=== PATIENT | female | born 1950 | race Hispanic/Latino ===

== ENCOUNTER 2017-12-27 15:13 | Emergency (ER) | payer BC, MEDICARE ==
[2017-12-27 15:20] VITALS: BMI 24.0
[2017-12-27] MEDS ORDERED: Sodium Chloride 0.9% 500 ML IV STA (15:32)
--- NOTE | 2017-12-27 15:40 | ED PDOC ---
Arrival/HPI - General Chief Complaint: Dizziness/Lightheaded Time Seen by Provider: 12/27/17 15:30 Historian: Patient - History of Present Illness Narrative History of Present Illness (Text): 12/27/17 15:30 pt p/w + sudden onset of dizziness/room spinning; pt states she was laying on a bed while getting a facial; pt states + nausea, no vomiting, ? mild headache, no fever/chills/sweats, no cp/sob/palpitations, no abd pain, no numbness/ tingling, no urinary/bowel changes, no fall/trauma/sick contact, no travel; pt denied any recent illness/URI symptoms pt denied vision changes, no neck pain, no hearing changes, no facial changes, and pt's daughter did not notice any speech changes pt arrived to the Emergency department for further eval pt's without other complaints PCP: Sammie Past medical history: NONE, ? HTN pt is right hand dominate Time/Duration: Prior to Arrival Symptom Onset: Sudden Symptom Course: Unchanged Severity Level: Severe Activities at Onset: Other (laying down while getting a facial) Context: Other (at a Spa) Past Medical History - Provider Review Nursing Documentation Reviewed: Yes - Travel History Have you recently traveled outside [place] w/in the past 3 mons?: No - Past History Past History: No Previous - Infectious Disease Hx of Infectious Diseases: None - Tetanus Immunization Tetanus Immunization: Unknown - Reproductive Menopause: Yes Currently : No - Cardiac Hx Cardiac Arrhythmia: Yes - Pulmonary Hx Bronchitis: Yes - Neurological Hx Neurological Disorder: No - HEENT Hx HEENT Disorder: No - Renal Hx Renal Disorder: No - Endocrine/Metabolic Hx Endocrine Disorders: No - Hematological/Oncological Hx Blood Disorders: No - Integumentary Hx Dermatological Disorder: No - Musculoskeletal/Rheumatological Hx Musculoskeletal Disorders: No Hx Falls: No - Gastrointestinal Hx Gastrointestinal Disorders: No - Genitourinary/Gynecological Hx Genitourinary Disorders: No - Psychiatric Hx Depression: No Hx Emotional Abuse: No Hx Physical Abuse: No Hx Substance Use: No - Past Surgical History Past Surgical History: No Previous - Suicidal Assessment Feels Threatened In Home Enviroment: No Family/Social History - Physician Review Nursing Documentation Reviewed: Yes Family/Social History: No Known Family HX Smoking Status: Never Smoked Hx Alcohol Use: No Hx Substance Use: No Hx Substance Use Treatment: No Allergies/Home Meds Allergies/Adverse Reactions: Allergies No Known Allergies Allergy (Verified 04/27/13 20:17) Home Medications: Home Meds Medication Instructions Recorded Confirmed Propranolol [Inderal] 20 mg PO ACB 04/28/13 12/27/17 Review of Systems - Review of Systems Constitutional: Normal. absent: Fatigue Eyes: Normal. absent: Vision Changes ENT: Normal. absent: Hearing Changes Respiratory: Normal. absent: SOB, Cough Cardiovascular: Normal. absent: Chest Pain, Syncope Gastrointestinal: Nausea. absent: Abdominal Pain, Vomiting, Appetite Changes Genitourinary Female: Normal Musculoskeletal: Normal Skin: Normal. absent: Rash Neurological: Dizziness. absent: Focal Weakness, Gait Changes, Speech Changes, Facial Droop Endocrine: Normal. absent: Diaphoresis Hemo/Lymphatic: Normal Psychiatric: Normal Physical Exam - Physical Exam Narrative Physical Exam (Text): 12/27/17 1540 General: alert/awake, GCS = 15, oriented x 3, resting in bed, uncomfortable, cooperative, interactive; NAD Head: NC/AT EYE: PERRLA, EOMI, sclera anicteric, no nystagmus, no photophobia; visual field intact b/l Facial: WNL Oral: uvula/tongue are midline, no exudate/lesions, no drooling/stridor, no dysphonia; intact dentitions NECK: intact ROM, no midline tenderness, no nuchal rigidity, no meningeal signs ; no step off Chest: CTA b/l, no w/r/r; no tachypenia, no accessory muscle use noted Cardiac: +S1, +S2, no m/r/r Abdominal: +BS, soft/nd/nt, well nourished patient; no masses/rebound/guarding/ rigidity; no senior's sign, no mcburney's point tenderness ext: intact ROM, strength 5/5 grossly intact in all limbs, neurovasc intact b/l ; no bibi's sign b/l, no pitting edema noted bl, no gross deformities noted SKIN: cap refill < 1 sec, no ulcerations, no petechiae, no rashes NEURO: CNII-XII WNL, no facial asymmetries, no slurr speech, oriented x 3 NIH stroke scale ~ 0 Psych: normal insight, normal affect Vital Signs Reviewed: Yes Vital Signs Temp Pulse Resp BP Pulse Ox 12/27/17 18:35 16 139/74 100 12/27/17 18:07 93 H 16 135/77 100 12/27/17 15:43 98.5 F 103 H 18 157/101 H 98 Temperature: Afebrile Blood Pressure: Hypertensive Pulse: Tachycardic Respiratory Rate: Normal Appearance: Positive for: Well-Appearing, Non-Toxic, Uncomfortable Pain Distress: None Mental Status: Positive for: Alert and Oriented X 3 - Systems Exam Head: Present: Atraumatic, Normocephalic Medical Decision Making ED Course and Treatment: 12/27/17 15:30 Impression: dizziness/lightheadedness i have consider all the differential diagnosis regarding pt's chief medical complaints/clinical findings, including but are not limited to: dizziness/ lightheadedness A/P: dizziness/lightheadedness - labs - ekg - ct - supportive care - observe/reevaluation 12/27/17 17:00 pt is doing well, no distress currently pt is awaiting her lab results 1730 pt remained comfortable pt is not in any distress pt denied any dizziness currently 12/27/17 18:30 pt felt improved, pt states no more dizziness pt is ambulatory without any difficulties NIH stroke scale ~ 0 vital signs are improved pt/family are made aware of pt's medical results pt is encouraged fluid hydration pt will f/u as directed pt will be discharged home Re-evaluation Time: 17:39 Reassessment Condition: Improved - Lab Interpretations Lab Results: 12/27/17 16:20 12/27/17 16:30 Lab Results 12/27/17 18:14: Urine Color Yellow, Urine Appearance Sl cloudy, Urine pH 7.5, Ur Specific [place] 1.020, Urine Protein Negative, Urine Glucose (UA) Negative, Urine Ketones Negative, Urine Blood Negative, Urine Nitrate Negative, Urine Bilirubin Negative, Urine Urobilinogen 0.2, Ur Leukocyte Esterase Negative 12/27/17 16:30: Sodium 144, Potassium 3.8, Chloride 106, Carbon Dioxide 26, Anion Gap 16, BUN 12, Creatinine 0.6 L, Est GFR ( Amer) > 60, Est GFR ( Non-Af Amer) > 60, Random Glucose 98, Calcium 9.6, Total Bilirubin 0.2, AST 53 H , ALT 34, Alkaline Phosphatase 75, Total Protein 7.6, Albumin 4.4, Globulin 3.2 , Albumin/Globulin Ratio 1.4 12/27/17 16:20: WBC 6.5, RBC 4.41, Hgb 12.7, Hct 37.1, MCV 84.1, MCH 28.8, MCHC 34.2, RDW 13.6, Plt Count 284, MPV 9.7, Gran % 59.6, Lymph % (Auto) 29.6, [place] % (Auto) 8.3 H, Eos % (Auto) 2.0, Baso % (Auto) 0.5, Gran # 3.86, Lymph # (Auto ) 1.9, [place] # (Auto) 0.5, Eos # (Auto) 0.1, Baso # (Auto) 0.03 I have reviewed the lab results: Yes Interpretation: All labs normal - RAD Interpretation Narrative RAD Interpretations (Text): 12/27/17 16:48 Chest X-ray - HISTORY: dizziness COMPARISON: 04/27/2013 TECHNIQUE: Chest PA and lateral FINDINGS: LUNGS: No active pulmonary disease. PLEURA: No significant pleural effusion identified. No pneumothorax apparent. CARDIOVASCULAR: No radiographic findings to suggest acute or significant cardiovascular disease. OSSEOUS STRUCTURES: No significant abnormalities. VISUALIZED UPPER ABDOMEN: Normal. OTHER FINDINGS: None. IMPRESSION: No active disease. No significant interval change compared to the prior examination(s). PROCEDURE: CT HEAD WITHOUT CONTRAST. HISTORY: Dizziness common near syncopal event COMPARISON: None available. TECHNIQUE: Axial computed tomography images were obtained through the head/brain without intravenous contrast. Coronal and sagittal reconstructed images. Radiation dose: Total exam DLP = 920.05 mGy-cm. This CT exam was performed using one or more of the following dose reduction techniques: Automated exposure control, adjustment of the mA and/or kV according to patient size, and/or use of iterative reconstruction technique. FINDINGS: HEMORRHAGE: No intracranial hemorrhage. BRAIN: No mass effect or edema. No atrophy or chronic microvascular ischemic changes. VENTRICLES: Unremarkable. No hydrocephalus. CALVARIUM: Unremarkable. PARANASAL SINUSES: Unremarkable as visualized. No significant inflammatory changes. MASTOID AIR CELLS: Unremarkable as visualized. No inflammatory changes. OTHER FINDINGS: None. IMPRESSION: No acute intracranial abnormalities. No significant findings to account for the clinical presentation. Radiology Orders: 12/27/17 15:30 HEAD W/O CONTRAST [CT] Stat 12/27/17 15:32 CHEST TWO VIEWS (PA/LAT) [RAD] Stat Centerpuncher: Radiologist - EKG Interpretation EKG Interpretation (Text): 12/27/17 15:43 NSR at 70 bpm, LAD, no ectopy, inverted T in leads III, F, moderate voltage criteria for LVH, no st changes, ABNL EKG; no gross changes compare with old ekg 04/2013 Interpreted by ED Physician: Yes Type: 12 lead EKG Comparison: Similar to previous EKG - Medication Orders Current Medication Orders: Discontinued Medications Famotidine (Pepcid) 20 mg PO STAT STA Stop: 12/27/17 16:48 Last Admin: 12/27/17 17:10 Dose: 20 mg Sodium Chloride (Sodium Chloride 0.9%) 500 mls @ 999 mls/hr IV .Q31M STA Stop: 12/27/17 16:02 Last Admin: 12/27/17 16:06 Dose: 999 mls/hr eMAR Start Stop Document 12/27/17 16:06 RR (Rec: 12/27/17 16:06 RR [facility] [id number] Intravenous Solution Start Date 12/27/17 Start Time 16:06 End Date 12/27/17 End time 16:36 Total Infusion Time 30 Meclizine HCl (Antivert) 50 mg PO STAT STA Stop: 12/27/17 15:32 Last Admin: 12/27/17 16:06 Dose: 50 mg Metoclopramide HCl (Reglan) 10 mg IVP STAT STA Stop: 12/27/17 15:32 Last Admin: 12/27/17 16:06 Dose: 10 mg IVP Administration Document 12/27/17 16:06 RR (Rec: 12/27/17 16:06 RR [facility] [id number]) Charges for Administration # of IVP Administrations 1 Disposition/Present on Arrival - Present on Arrival Any Indicators Present on Arrival: No History of DVT/PE: No History of Uncontrolled Diabetes: No Urinary Catheter: No History of Decub. Ulcer: No History Surgical Site Infection Following: None - Disposition Have Diagnosis and Disposition been Completed?: Yes Diagnosis: Vertigo, Dizziness Disposition: HOME/ ROUTINE Disposition Time: 18:25 Patient Plan: Discharge Condition: STABLE Discharge Instructions (ExitCare): Vertigo (a Type of Dizziness) Print Language: ESTONIAN Additional Instructions: Make sure to see your doctor in 1-2 days DRINK PLENTY OF FLUIDS take your medications as prescribed RETURN TO ED IF worse pain, cant breath, persistent vomiting, high fever >101- 102 for hours, altered behavior, slurr speech, facial changes, focal weakness ( arm/leg or both), unable to urinate, heavy/persistent bleeding, passing out, chest pain, or other medical emergencies Prescriptions: Meclizine [Meclizine*] 25 mg PO Q6 PRN #30 tab PRN Reason: Dizziness Metoclopramide [Reglan] 10 mg PO TID PRN #20 tab PRN Reason: Nausea/Vomiting Referrals: [facility] [Outside] - Follow up with primary [facility] [Outside] - Follow up with primary [facility] [Outside] - Follow up with primary Yasmin Olguin MD [Non-Staff] - Follow up with primary Hesham George MD [Staff Provider] - Follow up with primary Forms: [facility] (Slovenian)
[2017-12-27 15:59] VITALS: TEMP 98.5
[2017-12-27 16:23] LABS: BASO # 0.03 K/mm3 (0.0-2.0); BASO % 0.5 % (0.0-3.0); EOS # 0.1 (0.0-0.7); GRAN # 3.86 (1.4-6.5); GRAN % 59.6 % (50.0-68.0); HEMOGLOBIN 12.7 g/dL (12.0-16.0); LYMPH # 1.9 (1.2-3.4); LYMPH % 29.6 % (22.0-35.0); MEAN CELL VOLUME 84.1 fl (80.0-105.0); MEAN CORPUSCULAR HEMOGLOBIN 28.8 pg (25.0-35.0); MEAN CORPUSCULAR HGB CONC 34.2 g/dl (31.0-37.0); MEAN PLATELET VOLUME 9.7 fl (7.0-11.0); MONO # 0.5 (0.1-0.6); MONO % 8.3 % (1.0-6.0); RBC 4.41 10^6/uL (3.5-6.1); RED CELL DISTRIBUTION WIDTH 13.6 % (11.5-14.5); WHITE BLOOD COUNT 6.5 10^3/ul (4.5-11.0)
--- NOTE | 2017-12-27 16:44 | CT ---
PROCEDURE: CT HEAD WITHOUT CONTRAST. HISTORY: Dizziness common near syncopal event COMPARISON: None available. TECHNIQUE: Axial computed tomography images were obtained through the head/brain without intravenous contrast. Coronal and sagittal reconstructed images. Radiation dose: Total exam DLP = 920.05 mGy-cm. This CT exam was performed using one or more of the following dose reduction techniques: Automated exposure control, adjustment of the mA and/or kV according to patient size, and/or use of iterative reconstruction technique. FINDINGS: HEMORRHAGE: No intracranial hemorrhage. BRAIN: No mass effect or edema. No atrophy or chronic microvascular ischemic changes. VENTRICLES: Unremarkable. No hydrocephalus. CALVARIUM: Unremarkable. PARANASAL SINUSES: Unremarkable as visualized. No significant inflammatory changes. MASTOID AIR CELLS: Unremarkable as visualized. No inflammatory changes. OTHER FINDINGS: None. IMPRESSION: No acute intracranial abnormalities. No significant findings to account for the clinical presentation.
--- NOTE | 2017-12-27 16:45 | RAD ---
HISTORY: dizziness COMPARISON: 04/27/2013 TECHNIQUE: Chest PA and lateral FINDINGS: LUNGS: No active pulmonary disease. PLEURA: No significant pleural effusion identified. No pneumothorax apparent. CARDIOVASCULAR: No radiographic findings to suggest acute or significant cardiovascular disease. OSSEOUS STRUCTURES: No significant abnormalities. VISUALIZED UPPER ABDOMEN: Normal. OTHER FINDINGS: None. IMPRESSION: No active disease. No significant interval change compared to the prior examination(s).
[2017-12-27 18:09] VITALS: PULSE 93; RESP 16; O2SAT 100
[2017-12-27 18:14] LABS: ALBUMIN 4.4 g/dL (3.0-4.8); BLOOD UREA NITROGEN 12 mg/dL (7-21); CALCIUM 9.6 mg/dL (8.4-10.5); GFR AFRICAN-AMERICAN > 60; GFR NON-AFRICAN AMERICAN > 60
[2017-12-27 18:15] LABS: ALB/GLOB RATIO 1.4 (1.1-1.8); ALT/SGPT 34 U/L (7-56); AST/SGOT 53 U/L (14-36)
[2017-12-27 18:18] LABS: PH,URINE 7.5 (4.7-8.0); URINE BILIRUBIN NEGATIVE (NEGATIVE); URINE BLOOD NEGATIVE (NEGATIVE); URINE GLUCOSE (UA) NEGATIVE (NEGATIVE); URINE LEUKOCYTE ESTERASE NEGATIVE Leu/uL (NEGATIVE); URINE PROTEIN NEGATIVE mg/dL (<30 mg/dL); URINE UROBILINOGEN 0.2 E.U./dL (<1 E.U./dL)
[2017-12-27 18:28] LABS: URINE APPEARANCE SL CLOUDY (CLEAR); URINE COLOR YELLOW (YELLOW)
[2017-12-27 18:36] VITALS: BP 139/74
--- NOTE | 2017-12-28 13:14 | CARD ---
APPROVED REPORT EKG Measurement Heart [id number] <Conclusion> Normal sinus rhythm Moderate voltage criteria for LVH, may be normal variant Borderline ECG
== END 2017-12-27 18:35 | disposition home or self-care (01) ==
LOC: ED 15:13
DX: R42 Dizziness and giddiness (principal); I49.9 Cardiac arrhythmia, unspecified
CPT/HCPCS: 70450; 71046; 80053; 81003; 82948; 85025; 93005; 96374; 99285; J2765; J7040